=== PATIENT | male | born 1975 | race Caucasian/White ===

== ENCOUNTER 2017-07-26 09:52 | Day surgery (SDC) | payer BC ==
[2017-07-26] MEDS ORDERED: MIDAZOLAM 1 MG/ML 2 ML INJ ×3 (12:53)
[2017-07-26] MEDS ORDERED: FENTAnyl 50 MCG/ML VIAL ×2 (12:54)
== END 2017-07-26 13:27 | disposition home or self-care (01) ==
LOC: GIL 09:52
DX: D12.7 Benign neoplasm of rectosigmoid junction (principal); K64.8 Other hemorrhoids
CPT/HCPCS: 45380; 88305